=== PATIENT | female | born 2000 | race Caucasian/White ===

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

== ENCOUNTER 2023-08-21 08:05 | Emergency (ER) | payer OTHER ==
[2023-08-21 08:09] VITALS: BP 105/67; PULSE 69; RESP 20; TEMP 98.9; BMI 26.3
[2023-08-21] MEDS ORDERED: ONDANSETRON *ODT* 4 MG TABLET ONE (09:12)
[2023-08-21] MEDS: ONDANSETRON *ODT* 4 MG TABLET SL ONE (09:23)
[2023-08-21 09:36] LABS: BASO % 0.2 % (0-2.0); HEMOGLOBIN 13.6 GM/dL (10.7-15.3); LYMPH % 8.2 % (8-40); MEAN CELL VOLUME 88.2 fl (80-96); MEAN PLT VOLUME 7.8 fl (7.5-11.1); MONO % 10.7 % (3.8-10.2); NEUT % 80.9 % (42.8-82.8); PLATELET COUNT 343 10^3/uL (134-434); RBC 4.53 M/mm3 (3.60-5.2); RDW 13.5 % (11.6-15.6); WHITE BLOOD COUNT 18.9 K/mm3 (4.0-10.0)
[2023-08-21] MEDS ORDERED: FAMOTIDINE 20 MG TABLET ONE (09:44)
[2023-08-21] MEDS ORDERED: MAG HYDROX/AL HYDROX/SIMETH 30 ML UNIT-DOSE CUP ONE (09:44)
[2023-08-21 09:48] LABS: POTASSIUM 3.4 mmol/L (3.5-5.1)
[2023-08-21] MEDS: MAG HYDROX/AL HYDROX/SIMETH 30 ML UNIT-DOSE CUP PO ONE (09:48)
[2023-08-21] MEDS: FAMOTIDINE 20 MG TABLET PO ONE (09:48)
[2023-08-21 09:50] LABS: CALCIUM 9.4 mg/dL (8.5-10.1)
[2023-08-21 09:51] LABS: BLOOD UREA NITROGEN 19.9 mg/dL (7-18)
[2023-08-21 09:52] LABS: ALBUMIN 4.5 g/dl (3.4-5.0)
[2023-08-21 09:55] LABS: CREATININE 0.8 mg/dL (0.55-1.3)
[2023-08-21 09:56] LABS: TOT PROT 9.2 g/dl (6.4-8.2)
[2023-08-21 10:38] LABS: EPI CELLS >36 /uL (0-25.1); HYALINE CASTS 0 /uL (0-3.1); URINE APPEARANCE CLEAR; URINE BACTERIA 930 /uL (0-1359); URINE BILIRUBIN NEGATIVE (NEGATIVE); URINE COLOR YELLOW; URINE GLUCOSE (UA) NEGATIVE (NEGATIVE); URINE KETONE 2+ (NEGATIVE); URINE LEUK ESTERASE NEGATIVE (NEGATIVE); URINE NITRITE NEGATIVE (NEGATIVE); URINE PROTEIN 2+ (NEGATIVE); URINE RBC 22 /uL (0-23.9); URINE UROBILINOGEN 0.2 mg/dL (0.2-1.0); URINE WBC 17 /uL (0-25.8)
== END 2023-08-21 12:04 | disposition home or self-care (01) ==
LOC: JER 08:05
DX: R11.2 Nausea with vomiting, unspecified (principal); R10.13 Epigastric pain
CPT/HCPCS: 36415; 71046-TC-FY; 80053; 81003; 82272; 84703; 85025; 87086; 87186; 99284-25; Q0162

== ENCOUNTER 2024-05-07 18:17 | Emergency (ER) | payer OTHER ==
[2024-05-07 18:24] VITALS: BP 117/77; PULSE 69; RESP 18; TEMP 97.7; BMI 25.6
[2024-05-07] MEDS: SODIUM CHLORIDE 1,000 ML IV STA ×2 (18:50→20:54)
[2024-05-07] MEDS ORDERED: ACETAMINOPHEN INJECTION 100 ML ONE (18:55)
[2024-05-07] MEDS ORDERED: FAMOTIDINE 20 MG/50 ML IVPB 20 MG/50 ML MG IVPB ONE (18:55)
[2024-05-07] MEDS ORDERED: ONDANSETRON 4 MG/2 ML VIAL ONE (18:55)
[2024-05-07] MEDS: ONDANSETRON 4 MG/2 ML VIAL IVPUSH ONE (19:16)
[2024-05-07] MEDS: FAMOTIDINE 20 MG/50 ML IVPB 20 MG/50 ML MG IVPB ONE (19:16)
[2024-05-07] MEDS: DEXTROSE 5%-NORMAL SALINE 1,000 ML IV ONE (19:17)
[2024-05-07] MEDS: ACETAMINOPHEN 1000 MG/100 ML BAG IVPB ONE (19:17)
[2024-05-07 19:42] LABS: HEMATOCRIT 40.7 % (32.4-45.2); HEMOGLOBIN 13.6 GM/dL (10.7-15.3); MCH 30.6 pg (25.7-33.7); MCHC 33.5 g/dl (32.0-36.0); MEAN CELL VOLUME 91.2 fl (80-96); MEAN PLT VOLUME 7.9 fl (7.5-11.1); PLATELET COUNT 414 10^3/uL (134-434); RBC 4.46 M/mm3 (3.60-5.2); RDW 13.8 % (11.6-15.6)
[2024-05-07 19:49] LABS: HCG,QUALITATIVE URINE Negative
[2024-05-07 19:52] LABS: EPI CELLS >36 /uL (0-25.1); HYALINE CASTS 2 /uL (0-3.1); URINE APPEARANCE CLOUDY; URINE BACTERIA 2320 /uL (0-1359); URINE BILIRUBIN NEGATIVE (NEGATIVE); URINE COLOR YELLOW; URINE GLUCOSE (UA) NEGATIVE (NEGATIVE); URINE KETONE 3+ (NEGATIVE); URINE LEUK ESTERASE NEGATIVE (NEGATIVE); URINE NITRITE NEGATIVE (NEGATIVE); URINE PROTEIN 1+ (NEGATIVE); URINE RBC 33 /uL (0-23.9); URINE UROBILINOGEN 0.2 mg/dL (0.2-1.0); URINE WBC 5 /uL (0-25.8)
[2024-05-07 20:06] LABS: POTASSIUM 3.9 mmol/L (3.5-5.1)
[2024-05-07 20:08] LABS: CALCIUM 9.9 mg/dL (8.5-10.1)
[2024-05-07 20:09] LABS: ALBUMIN 4.7 g/dl (3.4-5.0); BLOOD UREA NITROGEN 12.2 mg/dL (7-18)
[2024-05-07 20:12] LABS: CREATININE 0.7 mg/dL (0.55-1.3)
[2024-05-07 20:13] LABS: BILIRUBIN,TOTAL 0.4 mg/dL (0.2-1)
[2024-05-07 20:14] LABS: TOT PROT 8.8 g/dl (6.4-8.2)
[2024-05-07 20:18] LABS: ANISOCYTOSIS 0; HELMET CELLS 0; HOWELL-JOLLY BODIES 0; MACROCYTOSIS 0; OVALOCYTE 0; ROULEAU 0; SICKELED CELLS 0; TARGET CELLS 0; TEAR DROP CELLS 0; TOXIC GRANULATION 0
[2024-05-07] MEDS ORDERED: IBUPROFEN 800 MG/8 ML IJ IVPB ONE (20:43)
[2024-05-07] MEDS ORDERED: METOCLOPRAMIDE HCL INJECTION 10 MG/2 ML VIAL ONE (20:43)
[2024-05-07] MEDS: IBUPROFEN 800 MG/8 ML IJ IVPB ONE (20:54)
[2024-05-07] MEDS: METOCLOPRAMIDE HCL INJECTION 10 MG/2 ML VIAL IVPUSH ONE (20:54)
[2024-05-07 22:26] LABS: BASO % 0.2 % (0-2.0); HEMATOCRIT 36.9 % (32.4-45.2); HEMOGLOBIN 12.2 GM/dL (10.7-15.3); LYMPH % 3.6 % (8-40); MCH 30.4 pg (25.7-33.7); MCHC 33.1 g/dl (32.0-36.0); MEAN CELL VOLUME 91.6 fl (80-96); MEAN PLT VOLUME 7.5 fl (7.5-11.1); NEUT % 91.2 % (42.8-82.8); PLATELET COUNT 327 10^3/uL (134-434); RBC 4.03 M/mm3 (3.60-5.2); RDW 13.3 % (11.6-15.6); WHITE BLOOD COUNT 19.6 K/mm3 (4.0-10.0)
[2024-05-07 22:57] LABS: ANISOCYTOSIS 0; MACROCYTOSIS 0; OVALOCYTE 1+
== END 2024-05-07 22:48 | disposition home or self-care (01) ==
LOC: JER 18:17
PROC: 3E033GC Introduction of Other Therapeutic Substance into Peripheral Vein, Percutaneous Approach (ICD-10-PCS; principal; 2024-05-07)
PROC: 3E033GC Introduction of Other Therapeutic Substance into Peripheral Vein, Percutaneous Approach (ICD-10-PCS; 2024-05-07)
PROC: 3E033NZ Introduction of Analgesics, Hypnotics, Sedatives into Peripheral Vein, Percutaneous Approach (ICD-10-PCS; 2024-05-07)
PROC: 3E0333Z Introduction of Anti-inflammatory into Peripheral Vein, Percutaneous Approach (ICD-10-PCS; 2024-05-07)
PROC: 3E033GC Introduction of Other Therapeutic Substance into Peripheral Vein, Percutaneous Approach (ICD-10-PCS; 2024-05-07)
PROC: 3E033GC Introduction of Other Therapeutic Substance into Peripheral Vein, Percutaneous Approach (ICD-10-PCS; 2024-05-07)
PROC: 3E0337Z Introduction of Electrolytic and Water Balance Substance into Peripheral Vein, Percutaneous Approach (ICD-10-PCS; 2024-05-07)
DX: K52.9 Noninfective gastroenteritis and colitis, unspecified (principal); R11.2 Nausea with vomiting, unspecified; R10.13 Epigastric pain
CPT/HCPCS: 36415; 80053; 81003; 84703; 85025; 87086; 99284-25; J0131